=== PATIENT | male | born 1985 ===

== ENCOUNTER → 2022-09-29 07:50 | Outpatient (CLI) | payer OTHER, SELFPAY ==
--- NOTE | 2022-09-29 | DI.ECHO.S_ITS ---
+ + [facility] : [facility] S : : Rj : : [place] : : [id number] : : Phone: [phone] Echocardiogram Report + + :Name: JUAN F CONN Study Date: 09/29/2022 Height: 72 in : :[facility] ReadingLocation: Weight: 249 lb : : Gender: Male BSA: 2.3 m2 : :: 1985 Age: 36 yrs BP: 122/83 mmHg: :Reason For Study: CHEST PAIN HR: 70 : :Ordering Physician: BILL, : :KATINA Performed By: DAHLIA VAIL : :Referring: KATINA KHAN : + + Interpretation Summary 1) Normal left ventricular thickness, size, wall motion, and systolic function (EF 55-60%). 2) Upper normal right ventricular size with normal function. 3) No significant valvular abnormalities. 4) No prior Echo available for comparison. Procedure: A two-dimensional transthoracic echocardiogram with color flow and Doppler was performed. The study quality was technically adequate. There is no prior echocardiogram noted for this patient. The patient was in normal sinus rhythm during the exam. Left Ventricle: The left ventricle is normal in size and wall thickness. Left ventricular systolic function is normal. The ejection fraction is estimated to be 55-60%. Left ventricular wall motion is normal. Diastolic parameters suggest probable normal left ventricular diastolic function and normal filling pressures. Right Ventricle: The right ventricle is at the upper limits of normal in size. The right ventricular systolic function is normal. Atria: The left atrial size is normal. Right atrial size is normal. There is no Doppler evidence for an interatrial shunt. Mitral Valve: The mitral valve is normal in structure and function. There is trace mitral regurgitation. Aortic Valve: The aortic valve is trileaflet. The aortic valve opens well. There is no aortic valve stenosis. No aortic regurgitation is present. Tricuspid Valve: The tricuspid valve is normal in structure and function. There is mild tricuspid regurgitation. The right ventricular systolic pressure is estimated to be at least 21 mmHg based on an estimated right atrial pressure of 3 mm Hg. Pulmonic Valve: The pulmonic valve is normal in structure and function. There is trace pulmonic regurgitation. Great Vessels: The aortic root is normal size. The dimensions of the ascending aorta are normal. Pericardium/ Pleura There is no pericardial effusion. MMode/2D Measurements & Calculations LVIDd: 5.6 cm LVOT diam: 2.3 cm LVIDs: 4.3 cm Ao root diam: 3.8 cm FS: 23.2 % asc Aorta Diam: 3.6 cm IVSd: 0.80 cm Ao Arch Diam (Prox Trans): 2.8 cm LVPWd: 0.90 cm LV donato. diameter/BSA (cm/m^2): 2.4 LV sys. diameter/BSA (cm/m^2): 1.8 LA A2 area: 21.5 cm2 RA long axis: 5.1 cm LA A4 area: 16.4 cm2 LA length (vol): 5.6 cm LA vol: 53.4 ml LA vol index: 22.9 ml/m2 LVLs ap4: 7.5 cm LVLd ap2: 9.0 cm LVLs ap2: 7.8 cm TAPSE_phl: 2.7 cm Doppler Measurements & Calculations Ao V2 max: 111.0 cm/sec LVOT Max Eric: 110.0 cm/sec Ao V2 mean: 80.9 cm/sec LV V1 max P.8 mmHg Ao max P.0 mmHg LV V1 VTI: 24.7 cm Ao mean P.0 mmHg MAYO(I,D): 3.8 cm2 Ao V2 VTI: 27.0 cm MAYO(V,D): 4.1 cm2 sev ratio: 0.91 MAYO indexed to BSA (cm^2/m^2): 1.6 MV E max eric: 90.8 cm/sec TR max eric: 211.0 cm/sec MV A max eric: 65.1 cm/sec TR max P.8 mmHg MV E/A: 1.4 PA V2 max: 91.6 cm/sec Med Peak E' Eric: 12.5 cm/sec PA V2 mean: 62.9 cm/sec E/E' med: 7.3 PA mean P.0 mmHg Lat Peak E' Eric: 14.5 cm/sec PA pr(Accel): 14.2 mmHg E/E' lat: 6.3 E/e' average: 6.8 MV dec time: 0.19 sec SV(LVOT): 102.6 ml AV VR_phl: 0.99 MAYO(VTI)/BSA_phl: 1.6 MV P1/2t-pr_phl: 54.0 msec Reading Physician:12:32 PM
== END ==
PROVIDERS: Referring Provider Chiropractor; Visit Provider Chiropractor
DX: R07.9 Chest pain, unspecified (principal); I07.1 Rheumatic tricuspid insufficiency
CPT/HCPCS: 93306